=== PATIENT | male | born 1955 | race Caucasian/White ===

== ENCOUNTER → 2018-11-06 | Outpatient (CLI) | payer OTHER ==
[~2018-11-06] MED LIST: DIVA250T12 PO; ENOX40DI2 SC; ESCI10TA48 PO; LEVO250T9 PO; OXYC-481 PO; QUET100T32 PO; SENN-99 PO
--- NOTE | 2018-11-06 15:43 | CONS ---
Consult Date/Type/Reason Admit Date/Time Initial Consult Date Date/Time of Note DATE: 11/06/18 TIME: 15:41 Subjective DOS: 10/18/2018 Procedure: Left hip hemiarthroplasty 3 weeks s/p left hip hemiarthroplasty for femoral neck fracture who returns today for follow up. The patient is doing well overall. Pain is Moderate. [facility]. States he is able to walk up and down the hallway with a walker. Narcotic Pain medication: Yes Gait Aids: Walker Pain better than before surgery: No Objective Vitals Weight: 190 pounds Height: 6 foot 1 inches Temperature: 90.4 Heart Rate: 89 Blood Pressure: 118/59 Respiratory Rate: 12 Exam General: Alert, oriented x3. No Acute Distress. Heart: Regular rate and rhythm. Lungs: No respiratory distress. No accessory muscle use. MUSCULOSKELETAL: Left lower Extremity: Incision clean, dry, intact. No skin breakdown, no surrounding erythema. Sensation intact to light touch in a sural, saphenous, deep peroneal, superficial peroneal, medial and lateral plantar nerve distribution. Motor is intact, patient able to dorsiflex and plantarflex ankle and extend and flex great toe. Dorsalis Pedis pulse +2, Brisk capillary refill. Compartments are soft. Rises from seated position without difficulty. Gait: Slow pace. Positive for limp. Positive for Trendelenburg. Walker gait aids. Results/Medications Home Meds Active Scripts Oxycodone Hcl* (IR) (Roxicodone*) 5 Mg Tab, 5 MG PO Q4H PRN for .PAIN for 10 Days, TAB Prov:CJ BARNEY MD 10/22/18 Enoxaparin Sodium* (Enoxaparin Sodium*) 40 Mg/0.4 Ml Syringe, 40 MG SC DAILY for 10 Days Prov:CJ BARNEY MD 10/22/18 Levofloxacin* (Levofloxacin*) 250 Mg Tablet, 250 MG PO DAILY@06 for 5 Days, TAB Prov:CJ BARNEY MD 10/22/18 Reported Medications Quetiapine Fumarate* (Quetiapine Fumarate*) 100 Mg Tablet, 100 MG PO HS, TAB 10/21/18 Divalproex Sodium* (Divalproex ER*) 250 Mg Tab.er.24h, 750 MG PO BID, #90 TAB.SA 10/21/18 Escitalopram Oxalate* (Escitalopram Oxalate*) 10 Mg Tablet, 10 MG PO DAILY, #30 TAB 10/21/18 Sennosides (Niharika-Tanja) 8.6 Mg Tablet, 17.2 MG PO DAILY, TAB 10/21/18 Imaging No imaging was available for review. CD sent by the [facility] was corrupted and cannot be viewed. Assessment/Plan Hospital Course (Demo Recall) 63-year-old male doing well 3 weeks s/p left hip hemiarthroplasty - Posterior Hip precuations. Weight-bear as tolerated continue physical therapy. - DVT Prophylaxis: ASA 81 mg twice daily times 4 weeks - FU 4 weeks for repeat clinical and radiographic exam - Antibiotic dental prophylaxis for any cleaning or procedure MARIO NAILS MD Nov 06, 2018 15:43
== END | disposition home or self-care (01) ==
LOC: HKI 14:18
PROVIDERS: ATTEND Orthopaedic Surgery Adult Reconstructive Orthopaedic Surgery
DX: Z47.1 Aftercare following joint replacement surgery (principal); Z96.642 Presence of left artificial hip joint

== ENCOUNTER → 2018-12-07 | Outpatient (CLI) | payer OTHER ==
--- NOTE | 2018-12-08 09:26 | RADRPT ---
PROCEDURE: XR Left Hip and pelvis. CLINICAL INDICATION: Left hip pain. Pelvic pain. Postop. TECHNIQUE: Three views. Frontal pelvis. Frontal and lateral left hip. COMPARISON: 10/17/2018. FINDINGS: There is no fracture or dislocation. The soft tissues are normal. There is a left hip hemiarthroplasty which appears satisfactory. The right hip is grossly normal. There is no lytic or blastic lesion. The sacroiliac joints are grossly normal. IMPRESSION: 1. Satisfactory postoperative appearance of the left hip. 2. Otherwise unremarkable study. RPTAT: QQ .Kai Glover MD, MD Date Time Electronically viewed and signed by .Kai Glover MD, on 12/08/2018 09:26 .R/
--- NOTE | 2018-12-08 18:19 | CONS ---
Consult Date/Type/Reason Admit Date/Time Initial Consult Date Date/Time of Note DATE: 12/08/18 TIME: 18:11 Subjective DOS: 10/18/2018 Procedure: Left hip hemiarthroplasty 6 weeks s/p left hip hemiarthroplasty for femoral neck fracture who returns today for follow up. The patient is doing well overall. Pain is Moderate. He remains is back at his subsidized housing. He states he is able to walk without a limp using a walker. Without a walker he has a significant limp. Narcotic Pain medication: no Gait Aids: Walker Pain better than before surgery: No Objective Vitals Weight: 185 pounds Height: 6 foot 1 inches Temperature: 98.4 Heart Rate: 80 Blood Pressure: 111/72 Respiratory Rate: 12 Exam General: Alert, oriented x3. No Acute Distress. Heart: Regular rate and rhythm. Lungs: No respiratory distress. No accessory muscle use. MUSCULOSKELETAL: Left lower Extremity: Incision clean, dry, intact. No skin breakdown, no surrounding erythema. Sensation intact to light touch in a sural, saphenous, deep peroneal, superficial peroneal, medial and lateral plantar nerve distribution. Motor is intact, patient able to dorsiflex and plantarflex ankle and extend and flex great toe. Dorsalis Pedis pulse +2, Brisk capillary refill. Compartments are soft. Rises from seated position without difficulty. Gait: moderate she is pace. Positive for limp. Positive for Trendelenburg without walker. Minimal limp with walker Results/Medications Home Meds Active Scripts Oxycodone Hcl* (IR) (Roxicodone*) 5 Mg Tab, 5 MG PO Q4H PRN for .PAIN for 10 Days, TAB Prov:CJ BARNEY MD 10/22/18 Enoxaparin Sodium* (Enoxaparin Sodium*) 40 Mg/0.4 Ml Syringe, 40 MG SC DAILY for 10 Days Prov:CJ BARNEY MD 10/22/18 Levofloxacin* (Levofloxacin*) 250 Mg Tablet, 250 MG PO DAILY@06 for 5 Days, TAB Prov:CJ BARNEY MD 10/22/18 Reported Medications Quetiapine Fumarate* (Quetiapine Fumarate*) 100 Mg Tablet, 100 MG PO HS, TAB 10/21/18 Divalproex Sodium* (Divalproex ER*) 250 Mg Tab.er.24h, 750 MG PO BID, #90 TAB.SA 10/21/18 Escitalopram Oxalate* (Escitalopram Oxalate*) 10 Mg Tablet, 10 MG PO DAILY, #30 TAB 10/21/18 Sennosides (Niharika-Tanja) 8.6 Mg Tablet, 17.2 MG PO DAILY, TAB 10/21/18 Imaging Xrays obtained in clinic today and personally reviewed by myself: AP pelvis and AP/Lat of the left hip demonstrate hip s/p cemented hip hemiarthro plasty with hip reduced. Components in good position and alignment. No signs of wear, osteolysis, loosening, component failure, or fracture. No acute complications. Assessment/Plan Hospital Course (Demo Recall) 63-year-old male doing well 6 weeks s/p left hip hemiarthroplasty - Posterior Hip precuations. Weight-bear as tolerated continue physical therapy, focus on hip abductors - FU 6 weeks for repeat clinical and radiographic exam - Antibiotic dental prophylaxis for any cleaning or procedure MARIO NAILS MD Dec 08, 2018 18:19
== END | disposition home or self-care (01) ==
LOC: HKI 13:52
PROVIDERS: ATTEND Orthopaedic Surgery Adult Reconstructive Orthopaedic Surgery
DX: M25.552 Pain in left hip (principal); Z96.642 Presence of left artificial hip joint
CPT/HCPCS: 73502